=== PATIENT | female | born 1945 | race Caucasian/White ===

== ENCOUNTER 2017-12-02 16:16 | Emergency (ER) | payer OTHER ==
[~2017-12-02] VITALS: Ht 167.6 cm; Wt 77.1 kg
--- NOTE | ~2017-12-02 | EKG ---
[place] [address] [facility] [employer] [place] [address] ELECTROCARDIOGRAM REPORT Name: JUAN DIEGO DAVIS Room #: [facility] [id number] Admission: 12/02/17 Attend Phys: Discharge: 12/02/17 Date of : 47 Report #: [id number] THIS REPORT FOR: //name// [facility] ED Test Date: 2017-12-02 Test Time: 17:05:19 Pat Name: JUAN DIEGO DAVIS Department: Room: Gender: F [employer] Trailer Truck Driver: MZOOK : 1945 Requested By: Alber Melgar Order Number: [id number] MD: Rocky Pittman Measurements Intervals [place] Rate: 72 P: 42 AK: 163 QRS: 27 QRSD: 87 T: 10 QT: 381 QTc: 417 Interpretive Statements Sinus rhythm No significant abnormality Compared to ECG 02/23/2009 18:16:50 No significant change was found Electronically Signed On 12-03-2017 7:35:58 CDT by Rocky Pittman [email or web address] <ELECTRONICALLY SIGNED> By: Rocky Pittman MD, [facility] 12/03/17 0735 1705 1705 Rocky Pittman MD, FACC /EPI
[~2017-12-02 16:16] MED LIST: ATIVAN0.5 MG; LANTUS SUBQ; LISINOPRIL5 MG PO; LOVASTAT10
[2017-12-02 17:05] LABS: ABSOLUTE NEUTROPHILS 3.5 thou/uL (1.4-8.2); BASOPHILS 1.2 % (0.0-2.0); EOSINOPHILS 3.6 % (0.0-3.0); HEMATOCRIT 39.3 % (37.0-47.0); HEMOGLOBIN 13.2 gm/dL (12.0-15.0); LYMPHOCYTES 37.2 % (24.0-44.0); MCH 29.1 pg (26.0-34.0); MCHC 33.5 g/dL (28.0-37.0); MCV 86.9 fL (80.0-100.0); MONOCYTES 10.1 % (1.0-8.0); PLATELET COUNT 299 thou/uL (150-400); POLYS 47.9 % (36.0-66.0); RBC 4.52 mil/uL (4.20-5.00); RDW 13.8 % (10.5-14.5); WBC 7.3 thou/uL (4.0-11.0)
[2017-12-02 17:09] LABS: ANION GAP 6 mmol/L (7-16); BUN 23 mg/dL (7-18); CALCIUM 9.3 mg/dL (8.5-10.1); CHLORIDE 100 mmol/L (98-107); CO2 28 mmol/L (21-32); CREATININE 0.7 mg/dL (0.6-1.0); GLUCOSE 250 mg/dL (74-106); POTASSIUM 4.2 mmol/L (3.5-5.1); SODIUM 134 mmol/L (136-145)
[2017-12-02] MEDS ORDERED: ATIVAN1 MG PO (17:11)
[2017-12-02 17:17] LABS: ALBUMIN 3.3 g/dL (3.4-5.0); SGOT 15 U/L (15-37); SGPT 18 U/L (30-65); TOTAL BILIRUBIN 0.4 mg/dL (<0.1-1.0); TOTAL PROTEIN 6.9 g/dL (6.4-8.2); TROPONIN-I < 0.04 ng/mL (<0.06)
[2017-12-02 17:38] LABS: URINE BILIRUBIN NEGATIVE (Negative); URINE BLOOD NEGATIVE (Negative); URINE CLARITY CLEAR; URINE COLOR YELLOW; URINE GLUCOSE-RANDOM* 1+ (Negative); URINE KETONES NEGATIVE (Negative); URINE LEUKOCYTES-REFLEX NEGATIVE (Negative); URINE NITRITE-REFLEX NEGATIVE (Negative); URINE PROTEIN (DIPSTICK) NEGATIVE (Negative); URINE SPECIFIC GRAVITY >= 1.030 (1.005-1.035); URINE UROBILINOGEN 0.2 E.U./dl (0.2-1.0)
[2017-12-02] MEDS ORDERED: VALACYCLOVIR1000 MG PO (18:34)
[2017-12-02 18:56] VITALS: BP 148/80
== END 2017-12-02 18:57 | disposition home or self-care (01) ==
LOC: ER 16:16
PROVIDERS: Emergency Medicine
DX: E11.65 Type 2 diabetes mellitus with hyperglycemia (principal); F41.9 Anxiety disorder, unspecified; I10 Essential (primary) hypertension; Z91.041 Radiographic dye allergy status; Z79.4 Long term (current) use of insulin

== ENCOUNTER 2018-01-24 14:52 | Inpatient (IN) | payer OTHER ==
[~2018-01-24] VITALS: Ht 165.1 cm; Wt 76.2 kg
--- NOTE | ~2018-01-24 | O ---
[facility] [place] [address] OPERATIVE REPORT Name: JUAN DIEGO DAVIS Room #: 452-P [facility] IN M.R.#: [id number] Admission: 01/24/18 Attend Phys: Cale Rivera MD Discharge: Date of : 47 Report #: [id number] THIS REPORT FOR: //name// CC: Cale Rivera MARILEE SAMUEL DATE OF SERVICE: 01/25/2018 PREOPERATIVE DIAGNOSIS: Left hip intertrochanteric hip fracture. POSTOPERATIVE DIAGNOSIS: Left hip intertrochanteric hip fracture. PROCEDURE: Left hip intramedullary nail. SURGEON: Santhosh Munoz MD ANESTHESIA: General. TRIM SAWYER: Tanika Jaquez M.D. ANESTHESIA: General. ESTIMATED BLOOD LOSS: Minimal. DRAINS: No drains. TOURNIQUET: No tourniquets. COMPLICATIONS: No complications. DESCRIPTION OF PROCEDURE: The patient was brought to the operating room where she was placed under general anesthesia. Once under adequate general anesthesia, she was placed onto the fracture table. Once on the fracture table, the left lower extremity was then placed into traction and a reduction maneuver was performed and achieved on the fracture. The left hip was then prepped and draped in a sterile manner. Utilizing fluoroscopy for guidance, a proximal incision just proximal to the tip of the greater trochanter was made. A curved cannulated awl was then used to enter the tip of the greater trochanter and subsequently, the femur was reamed to 12 mm and an 11 mm trochanteric femoral nail was placed proximally. Utilizing the outrigger jig, the guidewire for the compression screw was then placed across the fracture and subsequent fixation with a 100 mm screw was achieved. Excellent fixation was achieved utilizing the screw, was verified under fluoroscopy. A separate locking screw was placed proximally and a separate 1 cm incision was made distally over the transverse locking area and a separate transverse locking screw 34 mm in length was then placed. Once complete, the wounds were irrigated copiously and closed with 2-[address] [address] OPERATIVE REPORT Name: JUAN DIEGO DAVIS Room #: 452-P ADM IN M.R.#: [id number] Admission: 01/24/18 Attend Phys: Cale Rivera MD Discharge: Date of : 47 Report #: [id number] Vicryl in the subcutaneous tissues and cj for the skin. The wounds were dressed with Xeroform, 4 x 4s, and sterile soft compressive dressing was placed. There were no complications from the procedure. The patient tolerated the procedure well and went to the recovery room without incident. <ELECTRONICALLY SIGNED> By: Santhosh Munoz MD 01/27/18 1414 1126 1204 Santhosh Munoz MD /nt
--- NOTE | ~2018-01-24 | HC ---
[facility] [place] [address] CONSULTATION Name: JUAN DIEGO DAVIS Room #: 452- ADM IN M.R.#: [id number] Admission: 01/24/18 Attend Phys: Cale Rivera MD Discharge: Date of : 47 Report #: [id number] THIS REPORT FOR: //name// CC: Cale BAKER DATE OF SERVICE: 01/26/2018 HISTORY OF PRESENT ILLNESS: The patient is a 72-year-old white female with a history of an anxiety disorder, diabetes mellitus type 2, who had a fall sustaining a left hip intertrochanteric fracture. She was admitted to [facility]. She underwent intramedullary nailing on 01/25/[address] Munoz and is allowed weightbearing as tolerated. She had significant problems with anxiety, with generalized anxiety disorder. She has been placed on clonazepam, which appears to be improving things. She has Ativan p.r.n. May need to start SSRI. There is note in the chart notes regarding Psychiatry consult. She also was noted to have acute blood loss anemia. She has diabetes mellitus type 2. We are seeing her in Rehabilitation Medicine consultation. PAST MEDICAL HISTORY: Includes diabetes mellitus, anxiety, and hypertension. HABITS: No history of tobacco or alcohol abuse. ALLERGIES: CONTRAST DYE. SOCIAL HISTORY: Lives in an apartment alone, 6 steps in. Used a roller walker, was driving and was independent with shopping. She has a sister that is involved, 6 steps into the apartment. REVIEW OF SYSTEMS: Some anxiety as noted above. Did not offer any complaints of chest pain, shortness of breath or abdominal discomfort. Some hip discomfort as expected. No other extremity pain complaints. PHYSICAL EXAMINATION: GENERAL: A 72-year-old white female in no obvious distress. VITAL SIGNS: Last recorded temperature 98.3, pulse 103, respirations 22, blood pressure 121/55. NEUROLOGIC: The patient is somewhat sleepy, but easily arouses, follows basic 1 step commands. Facies appeared symmetric. Functional range of motion of both upper extremities with strength grade 4-/5. DTRs are trace to 1. Her left hip is dressed. There is no focal calf swelling. She can dorsiflex the left ankle. Functional range of motion of the right lower extremity strength is probably a grade 4-/5. She was mod assist with sit to stand. She was able to take 2 steps mod assist with a front-wheeled walker. She is [place] [address] CONSULTATION Name: JUAN DIEGO DAVIS Room #: [address] [place] [address] IN M.R.#: [id number] Admission: 01/24/18 Attend Phys: Cale Rivera MD Discharge: Date of : 47 Report #: [id number] ASSESSMENT: A 72-year-old white female with the following problems: 1. Left intertrochanteric hip fracture status post intramedullary nail on 01/25/2018, allowed weightbearing as tolerated. 2. Anxiety disorder. She is on clonazepam, Ativan. Note, consideration for Psychiatry consultation. 3. History of diabetes mellitus type 2. 4. Acute blood loss anemia. 5. Deep venous thrombosis prophylaxis. PLAN: Insurance will be checked regarding an acute in-hospital inpatient rehabilitation stay. She definitely needs some rehabilitation to further maximize her functional independence with mobility and ADLs that she can return back to the home setting. We will be glad to follow along with you regarding her rehab therapy needs. By: [id number] [id number] Alexandru Patel MD /nt
[~2018-01-24 14:52] MED LIST changes: +ATIVAN1 MG PO; +VALACYCLOVIR1000 MG PO
[2018-01-24 14:53] VITALS: BP 168/84
[2018-01-24 15:37] LABS: ABSOLUTE NEUTROPHILS 6.1 thou/uL (1.4-8.2); BASOPHILS 0.8 % (0.0-2.0); EOSINOPHILS 2.8 % (0.0-3.0); HEMATOCRIT 40.4 % (37.0-47.0); HEMOGLOBIN 13.8 gm/dL (12.0-15.0); LYMPHOCYTES 22.6 % (24.0-44.0); MCH 29.9 pg (26.0-34.0); MCHC 34.2 g/dL (28.0-37.0); MCV 87.4 fL (80.0-100.0); MONOCYTES 9.3 % (1.0-8.0); PLATELET COUNT 247 thou/uL (150-400); POLYS 64.5 % (36.0-66.0); RBC 4.62 mil/uL (4.20-5.00); RDW 15.4 % (10.5-14.5); WBC 9.5 thou/uL (4.0-11.0)
[2018-01-24 15:44] LABS: CALCIUM 9.3 mg/dL (8.5-10.1); POTASSIUM 4.5 mmol/L (3.5-5.1)
[2018-01-24 16:27] LABS: URINE BILIRUBIN NEGATIVE (Negative); URINE BLOOD NEGATIVE (Negative); URINE CLARITY CLEAR; URINE COLOR YELLOW; URINE GLUCOSE-RANDOM* 3+ (Negative); URINE KETONES 2+ (Negative); URINE LEUKOCYTES-REFLEX NEGATIVE (Negative); URINE NITRITE-REFLEX NEGATIVE (Negative); URINE PROTEIN (DIPSTICK) NEGATIVE (Negative); URINE SPECIFIC GRAVITY 1.015 (1.005-1.035); URINE UROBILINOGEN 0.2 E.U./dl (0.2-1.0)
[2018-01-24 16:35] LABS: AMP/METHAMP Negative (Negative); BARBITURATES Negative (Negative); BENZODIAZEPINES Negative (Negative); COCAINE Negative (Negative); METHADONE Negative (Negative); OPIATES Negative (Negative); PCP Negative (Negative)
[2018-01-24 16:56] VITALS: BP 168/84
[2018-01-24 18:17] LABS: ALBUMIN 2.3 g/dL (3.4-5.0); TOTAL PROTEIN 5.7 g/dL (6.4-8.2)
[2018-01-24 18:33] VITALS: BP 163/76
[2018-01-24 18:43] LABS: TSH 1.013 uIU/mL (0.358-3.740)
[2018-01-24 19:37] VITALS: BP 170/72
[2018-01-25] VITALS (12 sets, daily range): BP systolic 93–148; BP diastolic 42–67
[2018-01-25 06:53] LABS: HEMATOCRIT 35.6 % (37.0-47.0); MCH 29.6 pg (26.0-34.0); MCHC 33.9 g/dL (28.0-37.0); MCV 87.3 fL (80.0-100.0); RBC 4.07 mil/uL (4.20-5.00); WBC 14.9 thou/uL (4.0-11.0)
[2018-01-25 07:15] LABS: CREATININE 0.8 mg/dL (0.6-1.0); MAGNESIUM 1.2 mg/dL (1.8-2.4)
[2018-01-25 07:28] LABS: POTASSIUM 3.5 mmol/L (3.5-5.1)
[2018-01-26 04:37] VITALS: BP 145/53
[2018-01-26 05:51] LABS: HEMATOCRIT 26.1 % (37.0-47.0); MCHC 34.1 g/dL (28.0-37.0); MCV 87.9 fL (80.0-100.0); RBC 2.97 mil/uL (4.20-5.00); RDW 15.2 % (10.5-14.5); WBC 10.6 thou/uL (4.0-11.0)
[2018-01-26 05:54] LABS: HEMOGLOBIN 8.9 gm/dL (12.0-15.0)
[2018-01-26 06:02] LABS: CALCIUM 8.1 mg/dL (8.5-10.1); CREATININE 0.8 mg/dL (0.6-1.0); MAGNESIUM 1.3 mg/dL (1.8-2.4)
[2018-01-26 08:00] VITALS: BP 121/55
[2018-01-26 15:45] VITALS: BP 111/49
[2018-01-26 19:47] VITALS: BP 121/82
[2018-01-27 04:09] VITALS: BP 121/54
[2018-01-27 05:58] LABS: HEMATOCRIT 22.9 % (37.0-47.0); MCH 30.5 pg (26.0-34.0); MCHC 34.7 g/dL (28.0-37.0); MCV 87.9 fL (80.0-100.0); RBC 2.61 mil/uL (4.20-5.00); RDW 14.9 % (10.5-14.5); WBC 11.4 thou/uL (4.0-11.0)
[2018-01-27 06:06] LABS: CALCIUM 8.3 mg/dL (8.5-10.1); CREATININE 0.7 mg/dL (0.6-1.0); MAGNESIUM 1.4 mg/dL (1.8-2.4); POTASSIUM 3.9 mmol/L (3.5-5.1)
[2018-01-27 08:00] VITALS: BP 138/59
[2018-01-27 16:00] VITALS: BP 130/53
[2018-01-27 19:16] VITALS: BP 116/54
[2018-01-28 04:25] VITALS: BP 148/67
[2018-01-28 06:10] LABS: HEMATOCRIT 23.1 % (37.0-47.0); MCH 30.6 pg (26.0-34.0); MCHC 34.7 g/dL (28.0-37.0); RBC 2.63 mil/uL (4.20-5.00); RDW 14.7 % (10.5-14.5); WBC 10.5 thou/uL (4.0-11.0)
[2018-01-28 06:29] LABS: CALCIUM 8.3 mg/dL (8.5-10.1); CREATININE 0.7 mg/dL (0.6-1.0); MAGNESIUM 1.6 mg/dL (1.8-2.4); POTASSIUM 3.9 mmol/L (3.5-5.1)
[2018-01-28 07:49] VITALS: BP 147/55
[2018-01-28] MEDS ORDERED: CLONAZEPAM 0.50.5 M1 PO (13:03)
[2018-01-28] MEDS ORDERED: HYDROCODON-ACE1 EAC7 PO (13:05)
[2018-01-28] MEDS ORDERED: LANTUS100 UNIT/M SUBQ (13:05)
== END 2018-01-28 16:10 | DRG 480 ==
LOC: ER 14:52 → 4W 16:19 → EROBS 16:19 → 4W 18:22
PROVIDERS: Emergency Medicine; Internal Medicine; Orthopaedic Surgery Foot and Ankle Surgery
PROC: 0QS736Z Reposition Left Upper Femur with Intramedullary Internal Fixation Device, Percutaneous Approach (ICD-10-PCS; principal; 2018-01-25)
DX: S72.142A Displaced intertrochanteric fracture of left femur, initial encounter for closed fracture (principal); E43 Unspecified severe protein-calorie malnutrition; D62 Acute posthemorrhagic anemia; E11.9 Type 2 diabetes mellitus without complications; W18.39XA Other fall on same level, initial encounter; Y93.89 Activity, other specified; Y92.89 Other specified places as the place of occurrence of the external cause; Y99.8 Other external cause status; F32.9 Major depressive disorder, single episode, unspecified; F41.1 Generalized anxiety disorder; I10 Essential (primary) hypertension; Z68.28 Body mass index [BMI] 28.0-28.9, adult; Z91.041 Radiographic dye allergy status
CPT/HCPCS: 10040; 50010; 50101; 50133; 50386; 50635; 51412; 51538; 51817; 52146; 52304; 55430; 56524; 57092; 62110; 62900; 70005